=== PATIENT | male | born 1965 | race Caucasian/White ===

== ENCOUNTER 2017-01-10 02:33 | Emergency (ER) | payer OTHER ==
[~2017-01-10] VITALS: Ht 182.9 cm; Wt 88.6 kg
[2017-01-10 02:52] VITALS: BP 127/74; PULSE 88; RESP 16; O2SAT 99
--- NOTE | 2017-01-10 04:09 | ED.REPORT ---
HPI-Head Prob / Injury Date of Service Jan 10, 2017 ED Provider: Robert Thomas DO Mcnally is a 51-year-old male who presents to the ED with a "ingrown hair." Patient noticed the lesion about a week ago. His girlfriend tried picking at it last week but was unable to drain the lesion. It is causing him to have a headache due to the pressure. Pain is nonradiating. Denies fevers or chills. Denies all other symptoms. Nursing Notes Stated Complaint: SKIN RASH/ ABSCESS Chief Complaint: Skin Rash/Abscess Allergies: Coded Allergies: No Known Allergies (Verified Allergy, Unknown, 12/03/14) Scheduled Cephalexin (Keflex) 500 Mg Capsule 500 MG PO QID Sulfamethoxazole/Trimeth 800-160 mg (Bactrim DS) 1 Each Tablet 2 TABLET PO BID General Time Seen by Provider: 03:13 Chief Complaint Other Abscess Hx Obtained From: Patient Arrived By: Walk-in Onset Occurred: 1 week ago Symptom Duration: Constant Progression Since Onset: Gradually worsening Location: : Occipital region L Quality: Pressure Radiation: Does not radiate Severity: Current: Pain level 4 out of 10 Pertinent Negative: Pt denies other symptoms Pertinent Negative: Exacerbated by nothing Past Medical History Past Medical History denies Past Surgical History denies Smoking History Current Every Day Smoker Review of Systems Basic Review of Systems Respiratory: No shortness of breath, No cough, No wheeze Cardiovascular: No chest pain, No dyspnea on exertion, No orthopnea, No parox noct dyspnea, No palpitations : No dysuria, No frequency Hematologic: No bleeding, No bruising Endocrine: No cold intolerance, No heat intolerance, No weight gain, No weight loss Allergy / Immune: No allergy Psychiatric: Normal thought content Skin: Reports Swelling (slight swelling in the lesion behind his head.), Denies Bruising, Denies Itching Physical Exam Initial Vital Signs Vital Signs (First) Date Time Temp Pulse Resp B/P Pulse Ox O2 Delivery O2 Flow Rate FiO2 01/10/17 02:52 36.7 88 16 127/74 99 Room Air Initial VS: Reviewed Respiratory: Breath sounds normal, Clear to auscultation, No respiratory distress Cardiovascular: Regular rate & rhythm, Heart sounds normal, Intact distal pulses Skin: Warm, Dry Neck: Atraumatic, Supple, Full range of motion, No swelling, Non-tender, No midline vertebral tend, No masses Abscess #1 Location/Condition: Positive: Location (left occipital,), Purulent discharge, Tender Re-Eval/Medical Decision Med Decision/Clinical Course Uli is a 51-year-old male who presents to the ED with worsening abscess on the back of his head in occipital left region. There was some pus draining from the lesion and none after incision. We will treat him with antibiotics for folliculitis. Discharge & Departure Primary Impression: Folliculitis Disposition: Home All VS Reviewed: Yes Condition: Stable Patient Instructions: Folliculitis (ED) Additional Instructions: We made an incision in the area of your folliculitis. This help with the healing process. The area dry and clean. We are also prescribing you antibiotics. Take the Keflex 4 times a day for 5 days. Take Bactrim 2 tablets twice a day for 5 days. Follow-up with your primary care provider. Feel free to come back to the ED if you experience fevers or chills or worsening symptoms. Referrals: NOPCP (PCP) Attending Statement I took a history performed an exam. I concur with the note above. The wound was opened so it can drain. We will place him on anti-staph and strep antibiotics and close outpatient follow-up. Abril Youngblood DO Jan 10, 2017 04:09 Robert Thomas DO Jan 10, 2017 05:09
[2017-01-10] MEDS ORDERED: CEPH-512 PO (04:19)
[2017-01-10] MEDS ORDERED: SULF1TAB7 PO (04:19)
== END 2017-01-10 04:38 | disposition home or self-care (01) ==
LOC: SED 02:33
DX: L73.9 Follicular disorder, unspecified (principal); L98.9 Disorder of the skin and subcutaneous tissue, unspecified; R51 Headache; F17.200 Nicotine dependence, unspecified, uncomplicated